=== PATIENT | male | born 1960 ===

== ENCOUNTER 2020-09-23 16:44 | Observation (INO) | payer OTHER ==
[~2020-09-23] VITALS: Ht 182.9 cm; Wt 104.3 kg
[2020-09-23] MEDS ORDERED: ACET325 PO (19:26)
[2020-09-23] MEDS ORDERED: COMBIVENT RESPIM4 G1 INH (19:30)
[2020-09-23] MEDS ORDERED: BUDESONIDE-FO10.2 G2 INH (19:33)
[2020-09-23] MEDS ORDERED: CARV6.25 PO (19:35)
[2020-09-23] MEDS ORDERED: FERSU300 PO (19:37)
[2020-09-23] MEDS ORDERED: PANT40 PO (19:42)
[2020-09-23] MEDS ORDERED: PHOS PO (19:45)
[2020-09-23] MEDS ORDERED: POTASS PO (19:45)
[2020-09-23] MEDS ORDERED: [UNRECOGNIZED DRUG - OTHER] PO (19:45)
[2020-09-23] MEDS ORDERED: B-1100 M1 PO (19:46)
[2020-09-23] MEDS ORDERED: SENN187 PO (19:46)
[2020-09-23] MEDS ORDERED: SERT25 PO (19:46)
[2020-09-23] MEDS ORDERED: ACAMPROSATE CA333 MG PO (22:07)
[2020-09-23] MEDS ORDERED: ALBU90OI INH (22:07)
[2020-09-23] MEDS ORDERED: DOCU100 PO (22:09)
[2020-09-23] MEDS ORDERED: Vitamin D2000 UNIT PO (22:09)
[2020-09-23] MEDS ORDERED: CALCITONIN SAL (22:09)
[2020-09-23] MEDS ORDERED: DULO30 PO (22:09)
[2020-09-23] MEDS ORDERED: MAGNESIUM OXID500 MG PO (22:10)
[2020-09-23] MEDS ORDERED: METO25ER PO (22:11)
[2020-09-23] MEDS ORDERED: Glucophage 850850 MG PO (22:11)
[2020-09-23] MEDS ORDERED: ASMANEX HFA13 G6 INH (22:12)
[2020-09-23] MEDS ORDERED: MULTI-VITAMIN1 EAC2 PO (22:13)
[2020-09-23] MEDS ORDERED: OXYC5 PO (22:14)
[2020-09-23] MEDS ORDERED: Diovan40 MG PO (22:16)
[2020-09-23] MEDS ORDERED: STIOLTO RESPIMAT4 G1 INH (22:16)
[2020-09-23] MEDS ORDERED: PREG150 PO (22:16)
== END 2020-09-24 09:00 | disposition home or self-care (01) ==
LOC: ER 16:44 → EOR 16:45
PROVIDERS: ADMIT Emergency Medicine
DX: F10.129 Alcohol abuse with intoxication, unspecified (principal); C18.9 Malignant neoplasm of colon, unspecified; E11.40 Type 2 diabetes mellitus with diabetic neuropathy, unspecified; I10 Essential (primary) hypertension; E78.5 Hyperlipidemia, unspecified; C78.7 Secondary malignant neoplasm of liver and intrahepatic bile duct; C79.89 Secondary malignant neoplasm of other specified sites; Z79.899 Other long term (current) drug therapy; Z79.84 Long term (current) use of oral hypoglycemic drugs; Y90.8 Blood alcohol level of 240 mg/100 ml or more; I45.10 Unspecified right bundle-branch block
CPT/HCPCS: 99285-25; G0378